=== PATIENT | male | born 1985 | race American Indian/Alaskan Native ===

== ENCOUNTER 2016-10-07 07:55 | Emergency (ER) | payer MEDICAID, OTHER ==
[2016-10-07] MEDS ORDERED: Sodium Chloride 0.9% 1,000 ML IV ONE (08:18)
--- NOTE | 2016-10-07 08:27 | EDM.PDOC ---
{null, ED HPI GENERAL MEDICAL PROBLEM - General Chief Complaint: General Stated Complaint: [id number] SIDE EFFECTS MEDS HEADACHE NAUSEA THROW UP Time Seen by Provider: 10/07/16 08:10 Source of Information: Reports: Patient History Limitations: Reports: No Limitations - History of Present Illness INITIAL COMMENTS - FREE TEXT/NARRATIVE: This 30 yo male reports to the ED with a headache and nausea. The patient reports he was started on a medication at the beginning of this month. The patient reports he was advised to come to the ED if he started to have a headache. The patient reports he took some of his significant other's "period medication." Onset: Sudden Onset Date: 10/06/16 Duration: Constant Location: Reports: Head Quality: Reports: Ache, Dull Severity: Moderate Improves with: Reports: None Worsens with: Reports: None Associated Symptoms: Reports: Headaches, Nausea/Vomiting Bilateral Temporal Headache Pain Score (Numeric/FACES): 8 - Related Data Allergies Allergy/AdvReac Type Severity Reaction Status Date / Time No Known Allergies Allergy Verified 10/07/16 08:02 Home Meds: Home Meds Albuterol [IJD: Ventolin HFA] 2 puff INH ASDIRECTED 10/07/16 [History] Eplerenone [Eplerenone] 50 mg PO DAILY 10/07/16 [History] Past Medical History HEENT History: Reports: Other (See Below) Other HEENT History: central serous retinopathy Cardiovascular History: Reports: None Respiratory History: Reports: Asthma Gastrointestinal History: Reports: None Genitourinary History: Reports: None Musculoskeletal History: Reports: None Neurological History: Reports: None Psychiatric History: Reports: Other (See Below) Other Psychiatric History: social anxiety Endocrine/Metabolic History: Reports: None Hematologic History: Reports: None Immunologic History: Reports: None Oncologic (Cancer) History: Reports: None Dermatologic History: Reports: None - Infectious Disease History Infectious Disease History: Reports: None - Past Surgical History Head Surgeries/Procedures: Reports: None Respiratory Surgical History: Reports: None Male Surgical History: Reports: None Musculoskeletal Surgical History: Reports: None Social & Family History - Family History Family Medical History: Noncontributory - Tobacco Use Smoking Status *Q: Never Smoker Second Hand Smoke Exposure: No - Caffeine Use Caffeine Use: Reports: Soda - Alcohol Use Days Per Week of Alcohol Use: 0 - Recreational Drug Use Recreational Drug Use: Yes Drug Use in Last 12 Months: Yes Recreational Drug Type: Reports: Marijuana/Hashish Recreational Drug Use Frequency: Weekly ED ROS GENERAL - Review of Systems Review Of Systems: ROS reveals no pertinent complaints other than HPI. ED EXAM, GENERAL - Physical Exam Exam: See Below Exam Limited By: No Limitations General Appearance: Alert, WD/WN, Moderate Distress Eye Exam: Bilateral Eye: EOMI, Normal Inspection, PERRL Ears: Normal External Exam, Normal Canal, Hearing Grossly Normal, Normal TMs Nose: Normal Inspection, Normal Mucosa, No Blood Throat/Mouth: Normal Inspection, Normal Lips, Normal Teeth, Normal Gums, Normal Oropharynx, Normal Voice, No Airway Compromise Head: Atraumatic, Normocephalic Neck: Normal Inspection, Supple, Non-Tender, Full Range of Motion Respiratory/Chest: No Respiratory Distress, Lungs Clear, Normal Breath Sounds, No Accessory Muscle Use, Chest Non-Tender Cardiovascular: Normal Peripheral Pulses, Regular Rate, Rhythm, No Edema, No Gallop, No JVD, No Murmur, No Rub GI/Abdominal: Normal Bowel Sounds, Soft, Non-Tender, No Organomegaly, No Distention, No Abnormal Bruit, No Mass (Male) Exam: Deferred Rectal (Males) Exam: Deferred Back Exam: Normal Inspection, Full Range of Motion, NT Extremities: Normal Inspection, Normal Range of Motion, Non-Tender, Normal Capillary Refill, No Pedal Edema Neurological: Alert, Oriented, CN II-XII Intact, Normal Cognition, Normal Gait, Normal Reflexes, No Motor/Sensory Deficits, Other (frontal headache) Psychiatric: Normal Affect, Normal Mood Skin Exam: Warm, Dry, Intact, Normal Color, No Rash Lymphatic: No Adenopathy Course - Vital Signs Last Recorded V/S: Last Vital Signs Temp 36.5 C 10/07/16 08:04 Pulse 93 10/07/16 08:04 Resp 16 10/07/16 08:04 BP 134/93 H 10/07/16 08:04 Pulse Ox 99 10/07/16 08:04 - Orders/Labs/Meds Orders: Active Orders 24 hr Category Date Time Status Acetaminophen [Tylenol Extra Strength] Med 10/07/16 09:39 Once 1,000 mg PO ONETIME ONE Medication Orders Acetaminophen (Tylenol Extra Strength) 1,000 mg PO ONETIME ONE Stop: 10/07/16 09:40 Labs: Laboratory Tests 10/07/16 10/07/16 Range/Units 08:22 08:22 WBC 5.2 (5.0-10.0) 10^3/uL RBC 5.19 (4.6-6.2) 10^6/uL Hgb 16.9 (14.0-18.0) g/dL Hct 47.5 (40.0-54.0) % MCV 91.5 (80-100) fL MCH 32.6 (27.0-34.0) pg MCHC 35.6 H (33.0-35.0) g/dL Plt Count 229 (150-450) 10^3/uL Neut % (Auto) 45.4 (42.2-75.2) % Lymph % (Auto) 31.9 (20.5-50.1) % [place] % (Auto) 19.0 H (2-8) % Eos % (Auto) 3.3 H (1.0-3.0) % Baso % (Auto) 0.4 (0.0-1.0) % Sodium 138 (135-145) mmol/L Potassium 3.8 (3.6-5.0) mmol/L Chloride 102 (101-111) mmol/L Carbon Dioxide 26.0 (21.0-31.0) mmol/L Anion Gap 13.8 BUN 13 (7-18) mg/dL Creatinine 0.9 (0.6-1.3) mg/dL Est Cr Clr Drug Dosing 122.20 mL/min Estimated GFR (MDRD) > 60 BUN/Creatinine Ratio 14.44 Glucose 101 (74-105) mg/dL Calcium 9.7 (8.4-10.2) mg/dl Total Bilirubin 1.6 H (0.2-1.0) mg/dL AST 32 (10-42) IU/L ALT 17 (10-60) IU/L Alkaline Phosphatase 77 (42-121) IU/L Total Protein 8.3 H (6.7-8.2) g/dl Albumin 5.0 (3.2-5.5) g/dl Globulin 3.3 Albumin/Globulin Ratio 1.52 Meds: Medications Generic Name Dose Route Start Last Admin Trade Name Freq PRN Reason Stop Dose Admin Acetaminophen 1,000 mg 10/07/16 09:39 Tylenol Extra Strength PO 10/07/16 09:40 ONETIME ONE Discontinued Medications Generic Name Dose Route Start Last Admin Trade Name Rustam PRN Reason Stop Dose Admin Sodium Chloride 1,000 mls @ 999 mls/hr 10/07/16 08:18 10/07/16 08:25 Normal Saline IV 10/07/16 09:18 999 mls/hr .BOLUS ONE Administration Ketorolac Tromethamine 30 mg 10/07/16 09:05 10/07/16 09:10 Toradol IVPUSH 10/07/16 09:06 30 mg ONETIME ONE Administration Ondansetron HCl 4 mg 10/07/16 09:05 10/07/16 09:10 Zofran IV 10/07/16 09:06 4 mg ONETIME ONE Administration - Re-Assessments/Exams Free Text/Narrative Re-Assessment/Exam: 10/07/16 09:40 The patient reports his pain was down to a 4/10 (initially was an 8/10) after the Toradol, IV fluids and Zofran. Departure - Departure Time of Disposition: 09:42 Disposition: Home, Self-Care 01 Condition: fair Clinical Impression: Gastroenteritis Headache Qualifiers: Headache type: unspecified Headache chronicity pattern: acute headache Intractability: intractable Qualified Code(s): R51 - Headache - Discharge Information Instructions: Tension Headache, [id number], Viral Gastroenteritis, Adult, [id number] Forms: ED Department Discharge Care Plan Goals: The patient was advised of the examination and lab results during the visit. The patient was given a liter of IV fluid, IV Zofran, IV Toradol and PO Acetaminophen while in the ED. The patient was encouraged to continue to take his medications as directed, but he should follow-up with his primary care facility for continued evaluation and further management. If the patient has any additional symptoms or concerns, the patient should visit his primary care facility or return to the emergency department. - My Orders Last 24 Hours: My Active Orders 10/07/16 09:39 Acetaminophen [Tylenol Extra Strength] 1,000 mg PO ONETIME ONE - Assessment/Plan Last 24 Hours: My Active Orders 10/07/16 09:39 Acetaminophen [Tylenol Extra Strength] 1,000 mg PO ONETIME ONE }
[2016-10-07 08:50] LABS: CHLORIDE,CL 102 mmol/L (101-111); SODIUM,NA 138 mmol/L (135-145)
[2016-10-07] MEDS ORDERED: Ondansetron 4 MG/2 ML SDV IV ONE (09:05)
[2016-10-07] MEDS ORDERED: Ketorolac 30 MG/ML SDV IVPUSH ONE (09:05)
[2016-10-07] MEDS ORDERED: Acetaminophen 500 MG Tab PO ONE (09:39)
[2016-10-07 09:45] VITALS: BP 114/85
== END 2016-10-07 09:55 | disposition home or self-care (01) ==
LOC: DL.ED 07:55
DX: K52.9 Noninfective gastroenteritis and colitis, unspecified (principal); R51 Headache; J45.909 Unspecified asthma, uncomplicated; F41.9 Anxiety disorder, unspecified; Z79.899 Other long term (current) drug therapy
CPT/HCPCS: 36415; 80053; 85025; 96361; 96374; 96375; 99284; A9270; J1885; J2405; J7030

== ENCOUNTER 2019-04-24 19:39 | Emergency (ER) | payer MEDICAID, OTHER ==
[2019-04-24] MEDS ORDERED: Famotidine 20 MG/2 ML SDV IVPUSH ONE (20:11)
[2019-04-24] MEDS ORDERED: Ondansetron 4 MG/2 ML SDV IV ONE (20:11)
[2019-04-24] MEDS ORDERED: Sodium Chloride 0.9% 1,000 ML IV ONE (20:11)
[2019-04-24 20:19] LABS: ANION GAP 14.7; CHLORIDE,CL 101 mmol/L (101-111); SODIUM,NA 136 mmol/L (135-145)
--- NOTE | 2019-04-24 20:38 | EDM.PDOC ---
ED HPI GENERAL MEDICAL PROBLEM - General Chief Complaint: Abdominal Pain Stated Complaint: STOMACH PAIN Time Seen by Provider: 04/24/19 19:50 Source of Information: Reports: Patient History Limitations: Reports: No Limitations - History of Present Illness INITIAL COMMENTS - FREE TEXT/NARRATIVE: abdominal pain since am, 11 ate breakfast sandwich from gas station and vomited multiple time, , nausea and burning in stomach now, One loose stool Fever ad chills through out the day. No cough or sore throat. Upper Abdomen Pain Score (Numeric/FACES): 5 - Related Data Allergies Allergy/AdvReac Type Severity Reaction Status Date / Time No Known Allergies Allergy Verified 04/24/19 20:10 Home Meds: Home Meds Albuterol [IJD: Ventolin HFA] 2 puff INH ASDIRECTED 10/07/16 [History] Eplerenone 50 mg PO DAILY 10/07/16 [History] Past Medical History HEENT History: Reports: Other (See Below) Other HEENT History: central serous retinopathy Cardiovascular History: Reports: None Respiratory History: Reports: Asthma Gastrointestinal History: Reports: None Genitourinary History: Reports: None Musculoskeletal History: Reports: None Neurological History: Reports: None Psychiatric History: Reports: Other (See Below) Other Psychiatric History: social anxiety Endocrine/Metabolic History: Reports: None Hematologic History: Reports: None Immunologic History: Reports: None Oncologic (Cancer) History: Reports: None Dermatologic History: Reports: None - Infectious Disease History Infectious Disease History: Reports: None - Past Surgical History Head Surgeries/Procedures: Reports: None Respiratory Surgical History: Reports: None Male Surgical History: Reports: None Musculoskeletal Surgical History: Reports: None Social & Family History - Family History Family Medical History: Noncontributory - Tobacco Use Smoking Status *Q: Never Smoker - Caffeine Use Caffeine Use: Reports: None - Alcohol Use Date of Last Drink: 04/24/19 Time of Last Drink: 12:00 - Recreational Drug Use Recreational Drug Use: Yes Drug Use in Last 12 Months: Yes Recreational Drug Type: Reports: Marijuana/Hashish ED ROS GENERAL - Review of Systems Review Of Systems: Comprehensive ROS is negative, except as noted in HPI. ED EXAM, GI/ABD - Physical Exam Exam: See Below Exam Limited By: No Limitations General Appearance: Alert, Mild Distress Ears: Normal External Exam Nose: Normal Inspection Throat/Mouth: Normal Inspection Head: Atraumatic, Normocephalic Neck: Normal Inspection, Full Range of Motion Respiratory/Chest: No Respiratory Distress, Lungs Clear, Normal Breath Sounds Cardiovascular: Normal Peripheral Pulses, Regular Rate, Rhythm GI/Abdominal Exam: Soft, Tender (periumbilical and RLQ), Abnormal Bowel Sounds ( decreased) Back Exam: Normal Inspection, Full Range of Motion Extremities: Normal Inspection, Normal Range of Motion Neurological: Alert, Oriented, CN II-XII Intact, Normal Cognition, Normal Gait Psychiatric: Normal Affect Skin Exam: Warm, Dry, Intact, Normal Color Course - Vital Signs Last Recorded V/S: Last Vital Signs Temp 97.4 F 04/24/19 22:40 Pulse 75 04/24/19 22:40 Resp 17 04/24/19 22:40 BP 124/64 04/24/19 22:40 Pulse Ox 99 04/24/19 22:40 - Orders/Labs/Meds Orders: Active Orders 24 hr Category Date Time Status Abdomen Pelvis w Cont [CT] Urgent Exams 04/24/19 20:49 Taken HEPATITIS PANEL (4) [REF] Urgent Lab 04/24/19 20:45 Ordered Labs: Laboratory Tests 04/24/19 04/24/19 04/24/19 Range/Units 19:51 19:51 19:51 WBC 5.8 (5.0-10.0) 10^3/uL RBC 4.65 (4.6-6.2) 10^6/uL Hgb 15.5 D (14.0-18.0) g/dL Hct 44.4 (40.0-54.0) % MCV 95.5 (80-100) fL MCH 33.3 (27.0-34.0) pg MCHC 34.9 (33.0-35.0) g/dL Plt Count 212 (150-450) 10^3/uL Neut % (Auto) 61.1 (42.2-75.2) % Lymph % (Auto) 26.0 (20.5-50.1) % [place] % (Auto) 10.9 H (2-8) % Eos % (Auto) 1.7 (1.0-3.0) % Baso % (Auto) 0.3 (0.0-1.0) % Sodium 136 (135-145) mmol/L Potassium 3.7 (3.6-5.0) mmol/L Chloride 101 (101-111) mmol/L Carbon Dioxide 24.0 (21.0-31.0) mmol/L Anion Gap 14.7 BUN 11 (7-18) mg/dL Creatinine 0.7 (0.6-1.3) mg/dL Est Cr Clr Drug Dosing 147.93 mL/min Estimated GFR (MDRD) > 60 BUN/Creatinine Ratio 15.71 Glucose 88 (74-105) mg/dL Lactic Acid 0.7 (0.5-2.2) mmol/L Calcium 9.4 (8.4-10.2) mg/dl Total Bilirubin 2.1 H (0.2-1.0) mg/dL AST 176 H (10-42) IU/L ALT 288 H (10-60) IU/L Alkaline Phosphatase 75 (42-121) IU/L Total Protein 8.2 (6.7-8.2) g/dl Albumin 4.8 (3.2-5.5) g/dl Globulin 3.4 Albumin/Globulin Ratio 1.41 Amylase 34 (28-100) U/L Lipase 20 L (22-51) U/L Urine Color (YELLOW) Urine Appearance (CLEAR) Urine pH (5.0-9.0) Ur Specific [place] (1.005-1.030) Urine Protein (NEGATIVE) Urine Glucose (UA) (NEGATIVE) Urine Ketones (NEGATIVE) Urine Occult Blood (NEGATIVE) Urine Nitrite (NEGATIVE) Urine Bilirubin (NEGATIVE) Urine Urobilinogen (0.2-1.0) mg/dL Ur Leukocyte Esterase (NEGATIVE) Urine Opiates Screen (NEGATIVE) Ur Oxycodone Screen (NEGATIVE) Urine Methadone Screen (NEGATIVE) Ur Barbiturates Screen (NEGATIVE) U Tricyclic Antidepress (NEGATIVE) Ur Phencyclidine Scrn (NEGATIVE) Ur Amphetamine Screen (NEGATIVE) U Methamphetamines Scrn (NEGATIVE) Urine MDMA Screen (NEGATIVE) U Benzodiazepines Scrn (NEGATIVE) Urine Cocaine Screen (NEGATIVE) U Marijuana (THC) Screen (NEGATIVE) Ethyl Alcohol mg/dL 04/24/19 04/24/19 04/24/19 Range/Units 19:51 20:05 20:05 WBC (5.0-10.0) 10^3/uL RBC (4.6-6.2) 10^6/uL Hgb (14.0-18.0) g/dL Hct (40.0-54.0) % MCV (80-100) fL MCH (27.0-34.0) pg MCHC (33.0-35.0) g/dL Plt Count (150-450) 10^3/uL Neut % (Auto) (42.2-75.2) % Lymph % (Auto) (20.5-50.1) % [place] % (Auto) (2-8) % Eos % (Auto) (1.0-3.0) % Baso % (Auto) (0.0-1.0) % Sodium (135-145) mmol/L Potassium (3.6-5.0) mmol/L Chloride (101-111) mmol/L Carbon Dioxide (21.0-31.0) mmol/L Anion Gap BUN (7-18) mg/dL Creatinine (0.6-1.3) mg/dL Est Cr Clr Drug Dosing mL/min Estimated GFR (MDRD) BUN/Creatinine Ratio Glucose (74-105) mg/dL Lactic Acid (0.5-2.2) mmol/L Calcium (8.4-10.2) mg/dl Total Bilirubin (0.2-1.0) mg/dL AST (10-42) IU/L ALT (10-60) IU/L Alkaline Phosphatase (42-121) IU/L Total Protein (6.7-8.2) g/dl Albumin (3.2-5.5) g/dl Globulin Albumin/Globulin Ratio Amylase (28-100) U/L Lipase (22-51) U/L Urine Color Yellow (YELLOW) Urine Appearance Clear (CLEAR) Urine pH 6.5 (5.0-9.0) Ur Specific [place] 1.025 (1.005-1.030) Urine Protein Negative (NEGATIVE) Urine Glucose (UA) Negative (NEGATIVE) Urine Ketones 40 H (NEGATIVE) Urine Occult Blood Negative (NEGATIVE) Urine Nitrite Negative (NEGATIVE) Urine Bilirubin Negative (NEGATIVE) Urine Urobilinogen 0.2 (0.2-1.0) mg/dL Ur Leukocyte Esterase Negative (NEGATIVE) Urine Opiates Screen Negative (NEGATIVE) Ur Oxycodone Screen Negative (NEGATIVE) Urine Methadone Screen Negative (NEGATIVE) Ur Barbiturates Screen Negative (NEGATIVE) U Tricyclic Antidepress Negative (NEGATIVE) Ur Phencyclidine Scrn Negative (NEGATIVE) Ur Amphetamine Screen Negative (NEGATIVE) U Methamphetamines Scrn Negative (NEGATIVE) Urine MDMA Screen Negative (NEGATIVE) U Benzodiazepines Scrn Negative (NEGATIVE) Urine Cocaine Screen Negative (NEGATIVE) U Marijuana (THC) Screen Positive H (NEGATIVE) Ethyl Alcohol < 5 mg/dL Meds: Medications Discontinued Medications Generic Name Dose Route Start Last Admin Trade Name Rustam PRN Reason Stop Dose Admin Famotidine 20 mg 04/24/19 20:11 04/24/19 20:20 Pepcid IVPUSH 04/24/19 20:12 20 mg ONETIME ONE Administration Sodium Chloride 1,000 mls @ 999 mls/hr 04/24/19 20:11 04/24/19 20:22 Normal Saline IV 04/24/19 21:11 999 mls/hr .BOLUS ONE Administration Iopamidol 100 ml 04/24/19 20:49 04/24/19 21:52 Isovue-300 (61%) IVPUSH 04/24/19 20:50 Not Given ONETIME ONE Iopamidol 75 ml 04/24/19 21:41 04/24/19 21:41 Isovue-300 (61%) IVPUSH 04/24/19 21:42 75 ml ONETIME ONE Administration Ondansetron HCl 4 mg 04/24/19 20:11 04/24/19 20:18 Zofran IV 04/24/19 20:12 4 mg ONETIME ONE Administration - Radiology Interpretation Free Text/Narrative:: CT abdomen pelvis unremarkable see report Departure - Departure Time of Disposition: 22:29 Disposition: Home, Self-Care 01 Condition: Good Clinical Impression: Gastroenteritis, Elevated LFTs Nausea & vomiting Qualifiers: Vomiting type: bilious vomiting Qualified Code(s): R11.14 - Bilious vomiting - Discharge Information *PRESCRIPTION DRUG MONITORING PROGRAM REVIEWED*: No *COPY OF PRESCRIPTION DRUG MONITORING REPORT IN PATIENT STEPHANIA: No Instructions: Viral Gastroenteritis, Adult Forms: ED Department Discharge Additional Instructions: clear liquid diet advance as tolerated pepcid 10mg twice daily for 5 days follow up if symptoms worsen, follow up with primary care for elevated liver enzymes. - My Orders Last 24 Hours: My Active Orders 04/24/19 20:45 HEPATITIS PANEL (4) [REF] Urgent 04/24/19 20:49 Abdomen Pelvis w Cont [CT] Urgent - Assessment/Plan Last 24 Hours: My Active Orders 04/24/19 20:45 HEPATITIS PANEL (4) [REF] Urgent 04/24/19 20:49 Abdomen Pelvis w Cont [CT] Urgent
[2019-04-24] MEDS ORDERED: Iopamidol 612 MG/ML 100 ML Bottle IVPUSH ONE (20:49)
[2019-04-24] MEDS ORDERED: Iopamidol 612 MG/ML 75 ML Bottle IVPUSH ONE (21:41)
[2019-04-24 22:48] VITALS: BP 124/64; PULSE 75
== END 2019-04-24 22:45 | disposition home or self-care (01) ==
LOC: DL.ED 19:39
DX: K52.9 Noninfective gastroenteritis and colitis, unspecified (principal); R11.14 Bilious vomiting; R94.5 Abnormal results of liver function studies; J45.909 Unspecified asthma, uncomplicated
CPT/HCPCS: 36415; 74177; 80053; 80074; 80305; 80320; 81003; 82150; 83605; 83690; 85025; 96361; 96374; 96375; 99284; J2405; J3490; J7030; Q9967; G0480

== ENCOUNTER 2021-07-21 21:37 | Emergency (ER) | payer MEDICAID ==
[2021-07-21] MEDS ORDERED: Clindamycin HCl 150 MG Cap PO ONE ×2 (21:38→23:01)
[2021-07-21 22:57] VITALS: BP 110/80; PULSE 90
[2021-07-21] MEDS ORDERED: Ibuprofen 600 MG Tab PO ONE (23:00)
[2021-07-21] MEDS ORDERED: Clindamycin HCl 150 MG Cap ONE (23:07)
== END 2021-07-21 23:22 | disposition home or self-care (01) ==
LOC: DL.ED 21:37
DX: K04.7 Periapical abscess without sinus (principal); F17.210 Nicotine dependence, cigarettes, uncomplicated
CPT/HCPCS: 99283; A9270-GY

== ENCOUNTER 2022-01-17 21:01 | Emergency (ER) | payer MEDICAID ==
[2022-01-17 21:35] VITALS: BP 130/86; PULSE 110
[2022-01-17 21:47] LABS: METHAMPHETAMINES,URINE POSITIVE (NEGATIVE)
[2022-01-17 21:48] LABS: AMPHETAMINES,URINE POSITIVE (NEGATIVE); BARBITURATES,URINE NEGATIVE (NEGATIVE); BENZODIAZEPINE,URINE NEGATIVE (NEGATIVE); MDMA (ECSTASY), URINE POSITIVE (NEGATIVE); METHADONE,URINE NEGATIVE (NEGATIVE); OPIATES,URINE NEGATIVE (NEGATIVE); OXYCODONE,URINE NEGATIVE (NEGATIVE); PHENCYCLIDINE,URINE NEGATIVE (NEGATIVE); TCA,URINE NEGATIVE (NEGATIVE)
[2022-01-17] MEDS: Sodium Chloride 0.9% 1,000 ML IV ONE (22:04)
[2022-01-17 22:05] LABS: ANION GAP 16.2 mEq/L (7-13); CHLORIDE,CL 99 mmol/L (98-107); SODIUM,NA 139 mmol/L (136-145)
[2022-01-17 22:10] LABS: ACETAMINOPHEN 0 ug/mL (10-30 (Therapeutic)); ESTIMATED GFR 62 mL/min (>=60)
== END 2022-01-17 23:00 | disposition left against medical advice (07) ==
LOC: DL.ED 21:01
DX: F15.90 Other stimulant use, unspecified, uncomplicated (principal); F17.210 Nicotine dependence, cigarettes, uncomplicated
CPT/HCPCS: 36415; 80053; 80143; 80179; 80305; 80307; 81001; 83735; 85025; 87086; 96360; 99284; J7030